=== PATIENT | male | born 1950 | race Caucasian/White ===

== ENCOUNTER → 2020-01-31 | Outpatient (CLI) | payer OTHER | LOC: SJCVCIMAG 11:04 | PROVIDERS: ATTEND Internal Medicine Cardiovascular Disease | DX: I44.0 Atrioventricular block, first degree (principal); I10 Essential (primary) hypertension; Z79.82 Long term (current) use of aspirin; Z79.899 Other long term (current) drug therapy; Z88.0 Allergy status to penicillin ==

== ENCOUNTER → 2021-01-15 | Outpatient (CLI) | payer OTHER | LOC: SJCVC 10:55 | PROVIDERS: ATTEND Internal Medicine Cardiovascular Disease | DX: R94.31 Abnormal electrocardiogram [ECG] [EKG] (principal); I77.9 Disorder of arteries and arterioles, unspecified; I10 Essential (primary) hypertension; E11.9 Type 2 diabetes mellitus without complications; I25.10 Atherosclerotic heart disease of native coronary artery without angina pectoris; I65.23 Occlusion and stenosis of bilateral carotid arteries; R06.00 Dyspnea, unspecified; E78.00 Pure hypercholesterolemia, unspecified; R53.83 Other fatigue; R68.89 Other general symptoms and signs; Z88.0 Allergy status to penicillin; Z79.82 Long term (current) use of aspirin; Z79.899 Other long term (current) drug therapy; Z87.891 Personal history of nicotine dependence; Z82.49 Family history of ischemic heart disease and other diseases of the circulatory system ==

== ENCOUNTER → 2021-01-15 | Outpatient (CLI) | payer OTHER | LOC: CAT 12:30 | PROVIDERS: ATTEND Internal Medicine Cardiovascular Disease | DX: Z13.6 Encounter for screening for cardiovascular disorders (principal); I25.10 Atherosclerotic heart disease of native coronary artery without angina pectoris; E78.00 Pure hypercholesterolemia, unspecified ==

== ENCOUNTER 2021-01-23 08:18 | Observation (INO) | payer OTHER ==
[~2021-01-23] VITALS: Ht 177.8 cm; Wt 73.7 kg
[2021-01-23] VITALS (8 sets, daily range): BP systolic 135–161; BP diastolic 73–86
[2021-01-23] MEDS ORDERED: ASA81BEC PO ×2 (11:36)
[2021-01-23] MEDS ORDERED: PLAVIX 75 MG TA75 MG PO ×2 (11:37)
[2021-01-23] MEDS ORDERED: LABETALOL HCL300 MG PO ×2 (11:37)
[2021-01-23] MEDS ORDERED: LISINOPRIL-HCT1 EAC1 PO ×2 (11:38)
[2021-01-23] MEDS ORDERED: ROSUVASTATIN CA20 MG PO ×2 (11:38)
[2021-01-23] MEDS ORDERED: SUPER THERAVIT1 EACH PO ×2 (11:38)
[2021-01-24 03:05] LABS: HEMATOCRIT 35.2 % (42.0-52.0); HEMOGLOBIN 12.1 gm/dL (14.0-18.0); MCH 31.7 pg (26.0-34.0); MCHC 34.4 g/dL (28.0-37.0); RBC 3.83 mil/uL (4.50-6.00); WBC 6.9 thou/uL (4.0-11.0)
[2021-01-24 03:26] LABS: ALBUMIN 3.3 g/dL (3.4-5.0); CALCIUM 8.3 mg/dL (8.5-10.1); POTASSIUM 3.9 mmol/L (3.5-5.1); TOTAL BILIRUBIN 0.9 mg/dL (0.2-1.0); TOTAL PROTEIN 6.1 g/dL (6.4-8.2); TROPONIN-I 0.33 ng/mL (<0.06)
[2021-01-24 04:15] VITALS: BP 136/64
--- NOTE | 2021-01-24 07:45 | NUR ---
ASSESSMENTS CHARTED, MEDS CHARTED GIVEN. PATIENT RESTING IN BED DURING SHIFT. OFF BED REST FROM CATH PROCEDURE WHERE HE RECEIVED STENTS TO MID RCA TO MID LAD. SINUS RHYTHM, SINUS JOSE 1DEGREE BLOCK. ON ROOM AIR. RIGHT GROIN IS C/D/I SOFT. FALL PRECAUTIONS IN PLACE DURING SHIFT.
[2021-01-24 08:00] VITALS: BP 147/63
[2021-01-24] MEDS ORDERED: EFFIENT10 MG PO ×2 (08:00)
[2021-01-24 10:25] VITALS: BP 136/64
--- NOTE | 2021-01-24 14:00 | NUR ---
PATIENT ALERT/ORIENTED. VSS. STABLE RHYTHM ON THE MONITOR. PATIENT DENIES ANY PAIN OR DISCOMFORT. WORKED WITH [facility] THIS MORNING. AMBULATED AROUND UNIT. ORDERS FOR DISCHARGE. DISCHARGE PACKET REVIEWED WITH PATIENT AND . DENIES ANY QUESTIONS OR CONCERNS. AWARE OF NEW MEDICATIONS. RIGHT GROIN SITE SOFT. IV DISCONTINUED. TELEMONITOR OFF.
--- NOTE | 2021-01-24 14:43 | EKG ---
[address] [address] ELECTROCARDIOGRAM REPORT Name: SRINIVASA LUBIN Room #: 205-[facility].#: [id number] Admission: 01/23/21 Attend Phys: Dwayne Robin MD Discharge: 01/24/21 Date of : 48 Report #: [id number] [facility] Test Date: 2021-01-24 Test Time: 07:28:53 Pat Name: SRINIVASA LUBIN Department: Room: 205 Gender: M Regional Account Manager: JOSÉ MIGUEL : 1950 Requested By: Shira Farris Order Number: [id number] MD: Rashad Abdi Measurements Intervals [place] Rate: 61 P: -18 CT: 57 QRS: -21 QRSD: 86 T: 16 QT: 426 QTc: 429 Interpretive Statements Sinus rhythm Short CT interval Inferior infarct, old Artifact in lead(s) I,II,III,aVR,aVL,aVF,V2 No previous ECG available for comparison Electronically Signed On 01-24-2021 14:43:10 CDT by Rashad Abdi [email or web address] <ELECTRONICALLY SIGNED> By: Rashad Abdi MD, [facility] 01/24/21 1443 7 Rashad Abdi MD, [facility] /EPI
--- NOTE | 2021-01-24 17:21 | CATHLAB ---
[facility] [place] [address] INVASIVE PROCEDURE REPORT Name: SRINIVASA LUBIN Room #: 205-P [facility] Elodia Levin#: [id number] Admission: 01/23/21 Attend Phys: Dwayne Robin MD Discharge: 01/24/21 Date of : 48 Report #: [id number] THIS REPORT FOR: cc: FAM - Family physician unknown FAM - Family physician unknown Reynaldo Brown MD [facility] ~ APPROVED REPORT Study performed: 01/23/2021 14:02:28 Patient Details Patient Status: Out-Patient Room #: The patient is a 71 year-old male Event Personnel Doris Bender RTR, JOVANI Scrub, Lottie Keen RTR Scrub, Eugenio Saeed RTR Monitor, Brielle Thao RN RN, Roro Huerta RTR Heel Dipper, Reynaldo Brown Oracle Reports Developer, Connie Villar RTR Heel Dipper Procedures Performed Art Access - R femoral artery* Left Heart Cath w/or w/o Coronaries 5194609 [facility] w/wo Plasty Single LAD 756752 JASSI Place w/wo Plasty Single RCA 718522 Hemostasis w/ Mynx 26850 Initial Mod Sed Same Phys/QHP Gr5y 787826 51864 Mod Sed Same Phys/QHP Ea 167211 Procedure Narrative A SHEATH BRITE-TIP 6F X 11CM ([id number]) sheath was inserted into the RFA^. Coronary angiography was performed using coronary diagnostic catheters. The right coronary system was accessed and visualized with a JR4 catheter. The left coronary system was accessed and visualized with a JL4 catheter. The left ventricle was accessed and visualized with a PIGTAIL catheter. Left ventriculogram was performed in 30 degree projection. An aortogram of the abdominal aorta was performed. Closure device was deployed with a Fr MYNX CONTROL 6F/7F L#[id number]. The patient tolerated the procedure well and there were no complications associated with the procedure. There was no hematoma. Intraoperative Conscious Sedation Sedation start time: 13:00 Case end Time: 15:59 Fentanyl 200 mcg Versed [address] [address] INVASIVE PROCEDURE REPORT Name: SRINIVASA LUBIN Room #: 205-P [facility]#: [id number] Admission: 01/23/21 Attend Phys: Dwayne Robin, Discharge: 01/24/21 Date of : 48 Report #: [id number] Fluoro Time: 17.62 minutes Dose: DAP 54039.70 cGycm2 1679 mGy Contrast Type and Amount: Visipaque 133 ml Hemodynamics The aortic pressure is 179/83 mmHg with a mean of 126 mmHg. The left ventricular pressure is 173/10 mmHg with a mean of mmHg. The left ventricular end diastolic pressure is 16 mmHg. PCI Technique Lesion Percutaneous coronary intervention was performed on the mid right coronary artery. A LAUNCHER 6FR JR 4 #[id number] Guide Catheter was used to engage the ostium. A Luge Wire .014 x 182CM #[id number] Interventional Guidewire was used to cross the lesion. BALLOON DILATION A Balloon catheter Sprinter OTW 2.5 x 12 #[id number] was inserted and inflated up to 14.00atm for 38seconds. Additional Inflation: 14.00atm for 28seconds. STENT DEPLOYMENT A drug-eluting stent RESOLUTE BRUNA OTW 2.75 X 8 #[id number] was inserted and inflated up to 16.00atm for 37seconds. Additional Inflation: 18.00atm for 25seconds. PCI Technique Lesion 2 Percutaneous Coronary Intervention was performed on the mid left anterior descending artery segment. A LAUNCHER 6FR EBU 4 #[id number] Guide Catheter was used to engage the ostium. A Luge Wire .014 x 182CM #[id number] Interventional Guidewire was used to cross the lesion. Balloon Dilation A Balloon catheter Sprinter OTW 2.5 x 12 #[id number] was inserted and inflated up to 8.00atm for 23seconds. Additional Inflation: 10.00atm for 30seconds. Stent Deployment A drug-eluting stent RESOLUTE BRUNA OTW 2.5 X 8 #[id number] was inserted and inflated up to 16.00atm for 39seconds. Additional Inflation: 18.00atm for 25seconds. Conclusion #1. Successful PTCA stent of a 90% eccentric mildly calcified mid dominant RCA lesion. Placement of a 2.75 x 8 resolute drug-eluting [address] [address] INVASIVE PROCEDURE REPORT Name: SRINIVASA LUBIN Room #: 205-P [facility] IN M.R.#: [id number] Admission: 01/23/21 Attend Phys: Dwayne Robin, Discharge: 01/24/21 Date of : 48 Report #: [id number] stent set tortuous proximal vessel final result was excellent brisk flow into the PDA OLLIE. #2 successful PTCA stent of a subtotaled mid LAD stenosis with a well-preserved distal vessel which extends around the apex. A 2.5 x 8 resolute stent postdilated 2.7 mm PHILLIP grade III flow. There is a 60 to 70% stenosis distal to this lesion not flow-limiting. And then vessel well-preserved. #3 left main mildly calcified mild disease giving rise to LAD and circumflex. #4 circumflex OM is nondominant with mild disease moderate calcification is a small vessel #5 hyperdynamic LV function EF 60% range. Recommendations and plan: Continue aggressive risk factor modification. Dual antiplatelet therapy has been initiated. Patient transferred to CCU to follow post coronary stent protocol. <ELECTRONICALLY SIGNED> By: Reynaldo Brown MD, FACC 01/24/211720 20 20 Reynaldo Brown MD, FACC /INF
== END 2021-01-24 11:04 | disposition designated cancer center or children's hospital (05) ==
LOC: CATH → 2N 16:32 → CATH 01-24 07:45 → 2N 01-24 11:04
PROVIDERS: Nurse Practitioner Adult Health; ADMIT Nuclear Medicine Nuclear Cardiology; ATTEND Nuclear Medicine Nuclear Cardiology
DX: I25.10 Atherosclerotic heart disease of native coronary artery without angina pectoris (principal); I70.202 Unspecified atherosclerosis of native arteries of extremities, left leg; I10 Essential (primary) hypertension; E78.5 Hyperlipidemia, unspecified; I65.29 Occlusion and stenosis of unspecified carotid artery; Z79.82 Long term (current) use of aspirin

== ENCOUNTER → 2021-01-23 | Outpatient (CLI) | payer OTHER ==
[~2021-01-23] MED LIST: ASA81BEC PO; EFFIENT10 MG PO; LABETALOL HCL300 MG PO; LISINOPRIL-HCT1 EAC1 PO; PLAVIX 75 MG TA75 MG PO; ROSUVASTATIN CA20 MG PO; SUPER THERAVIT1 EACH PO
== END ==
LOC: SJCVCIMAG 06:33
PROVIDERS: ATTEND Internal Medicine Cardiovascular Disease
DX: I44.0 Atrioventricular block, first degree (principal); I10 Essential (primary) hypertension; R07.89 Other chest pain; R06.00 Dyspnea, unspecified; R53.83 Other fatigue; R06.09 Other forms of dyspnea; Z79.82 Long term (current) use of aspirin; Z79.899 Other long term (current) drug therapy; Z88.0 Allergy status to penicillin

== ENCOUNTER → 2021-01-31 | Outpatient (CLI) | payer OTHER | LOC: SJCVCIMAG 08:12 → SJCVC 08:12 → SJCVCIMAG 10:33 | PROVIDERS: ATTEND Internal Medicine Cardiovascular Disease | DX: R94.31 Abnormal electrocardiogram [ECG] [EKG] (principal); I25.10 Atherosclerotic heart disease of native coronary artery without angina pectoris; I10 Essential (primary) hypertension; E78.00 Pure hypercholesterolemia, unspecified; I65.23 Occlusion and stenosis of bilateral carotid arteries; G20 Parkinson's disease; E11.9 Type 2 diabetes mellitus without complications; Z87.891 Personal history of nicotine dependence; Z72.89 Other problems related to lifestyle; Z79.82 Long term (current) use of aspirin; Z79.899 Other long term (current) drug therapy; Z88.0 Allergy status to penicillin; Z95.818 Presence of other cardiac implants and grafts ==

== ENCOUNTER → 2021-07-11 | Outpatient (CLI) | payer OTHER | LOC: SJCVCIMAG 06:55 | PROVIDERS: ATTEND Nuclear Medicine Nuclear Cardiology | DX: R94.31 Abnormal electrocardiogram [ECG] [EKG] (principal); I65.23 Occlusion and stenosis of bilateral carotid arteries; I25.10 Atherosclerotic heart disease of native coronary artery without angina pectoris; G20 Parkinson's disease; E78.00 Pure hypercholesterolemia, unspecified; I10 Essential (primary) hypertension; E11.9 Type 2 diabetes mellitus without complications; Z88.0 Allergy status to penicillin; Z79.82 Long term (current) use of aspirin; Z79.899 Other long term (current) drug therapy; Z72.89 Other problems related to lifestyle; Z87.891 Personal history of nicotine dependence ==